=== PATIENT | female | born 1990 | race Caucasian/White ===

== ENCOUNTER 2017-11-03 15:07 | Emergency (ER) | payer OTHER ==
[~2017-11-03] VITALS: Ht 165.1 cm; Wt 60.3 kg
[2017-11-03 15:10] VITALS: BP 114/67
[2017-11-03] MEDS ORDERED: CEPHALEXIN 500 MG CAP PO ONE (16:55)
[2017-11-03] MEDS ORDERED: IBUPROFEN 600 MG TAB PO ONE (16:55)
[2017-11-03 18:00] VITALS: BP 125/61
== END 2017-11-03 18:00 | disposition home or self-care (01) ==
LOC: MED 15:07
DX: S90.412A Abrasion, left great toe, initial encounter (principal); S90.411A Abrasion, right great toe, initial encounter; X58.XXXA Exposure to other specified factors, initial encounter; Y93.89 Activity, other specified; Y92.89 Other specified places as the place of occurrence of the external cause; Y99.8 Other external cause status
CPT/HCPCS: 90471; 90715; 99283